=== PATIENT | male | born 1940 | race Caucasian/White ===

== ENCOUNTER 2016-12-19 07:07 | Emergency (ER) | payer OTHER ==
[~2016-12-19] VITALS: Ht 160 cm; Wt 65.1 kg
[2016-12-19 07:13] VITALS: Ht 160 cm; Wt 65.1 kg
[2016-12-19] MEDS ORDERED: KETOROLAC 30 MG INJ IM STA (07:37)
[2016-12-19] MEDS ORDERED: OXYC-279 PO (07:40)
[2016-12-19] MEDS ORDERED: IBUP-1542 PO (07:40)
[2016-12-19 07:53] LABS: URINE BLOOD (Dip) POC Trace-lysed (NEGATIVE)
--- NOTE | 2017-02-16 13:19 | ERD ---
ER Documentation Chief Complaint Date/Time DATE: 12/19/2016 TIME: 13:16 Chief Complaint has inguinal hernia, has pain x 1 mos HPI 77-year-old man complains of right inguinal hernia pain for over one month. He states he was previously diagnosed with an inguinal hernia and has not yet followed up with the surgeon. Pain is worse with ambulation, he states the pain is intermittent denies constant pain, no dysuria hematuria, no fevers or chills, no recent trauma, no chest pain or shortness of breath. Patient denies recent vomiting or weight loss. ROS All systems reviewed and are negative except as per history of present illness. Medications Home Meds Active Scripts Oxycodone HCl/Acetaminophen (Percocet 5-325 mg Tablet) 1 Each Tablet, 1 EACH PO TID for PAIN, #12 TAB Prov:ESTRELLA BORJAS MD 12/19/16 Ibuprofen* (Motrin*) 600 Mg Tab, 600 MG PO Q8 for PAIN AND/OR INFLAMMATION, #30 TAB Prov:ESTRELLA BORJAS MD 12/19/16 Allergies Allergies: Coded Allergies: No Known Allergy (Unverified , 12/19/16) PMhx/Soc Inguinal hernia Medical and Surgical Hx: pt denies Medical Hx, pt denies Surgical Hx History of Surgery: No Anesthesia Reaction: No Hx Neurological Disorder: No Hx Respiratory Disorders: No Hx Cardiac Disorders: No Hx Psychiatric Problems: No Hx Miscellaneous Medical Probl: No Hx Alcohol Use: No Hx Substance Use: No Hx Tobacco Use: No Smoking Status: Never smoker FmHx Family History: No diabetes Physical Exam Physical Exam GENERAL: Well-developed, well-nourished, well-hydrated, in no apparent distress , looks nontoxic in appearance HEENT: Moist mucous membranes, pink conjunctiva, no cervical spine tenderness or step-off deformities, no goiter, no jaundice or icterus, extraocular movements intact without pain. No submandibular induration, and no pharyngeal erythema NEURO: Alert and oriented 3, cranial nerves II through XII intact bilaterally, pupils equal round reactive to light, no focal deficits or facial asymmetry, sensation intact distally Strength 5/5 in upper and lower extremities bilaterally CARDIAC: Regular rate and rhythm, no murmurs rubs or gallops LUNGS: Clear bilaterally no wheezing crackles or stridor ABDOMEN: Soft nontender, reducible inguinal mass consistent with inguinal hernia. No psoas sign no obturator sign. Normoactive bowel sounds SKIN: Warm and dry to touch, no abrasions, contusions, or hematomas, no lacerations, no ecchymosis, no target lesions, and without ulcers EXTREMITIES: No clubbing cyanosis or edema, calves are bilaterally symmetrical, no Homans sign, no popliteal cord sign. Distal pulses equal and bilateral PSYCH: Normal affect without agitation or irritability Results 24 hrs Laboratory Tests Test 12/19/16 07:56 Bedside Urine pH (LAB) 6.5 Bedside Urine Protein (LAB) Negative Bedside Urine Glucose (UA) Negative Bedside Urine Ketones (LAB) Negative Bedside Urine Blood Trace-lysed Bedside Urine Nitrite (LAB) Negative Bedside Urine Leukocyte Esterase (L Negative Current Medications Medications (Trade) Dose Ordered Sig/Rafael Route PRN Reason Start Time Stop Time Status Last Admin Dose Admin Ketorolac Tromethamine (Toradol) 30 mg ONCE STAT IM 12/19/16 07:37 12/19/16 07:38 DC 12/19/16 07:55 Procedures/MDM I administered Toradol 30 mg intramuscular injection with good pain control. The patient to follow-up with his primary care physician and gave him the address and phone number to nearby surgeons that he can follow-up with for operative intervention. Differential diagnoses considered, included but not limited to acute coronary syndrome, pulmonary embolism, aortic dissection, abdominal aortic aneurysm, sepsis, stroke, meningitis, encephalitis, pneumonia, appendicitis, cholecystitis , bowel obstruction, pyelonephritis, nephrolithiasis, cystitis, as well as metabolic, hematologic, and electrolyte abnormalities. As well as abscess, cellulitis, fractures, and dislocations. Patient feels much better at this time, and vital signs are normal, symptoms have improved. I did give strict instructions to return to the ED if symptoms continue or worsen, patient will otherwise follow-up with primary care physician. Patient understood instructions and agreed to plan. Departure Diagnosis: Primary Impression: Hernia, abdominal Hernia type: femoral Obstruction and gangrene presence: without obstruction or gangrene Laterality: unilateral Recurrence: not specified as recurrent Qualified Code: K41.90 - Unilateral femoral hernia without obstruction or gangrene, recurrence not specified Condition: Good Patient Instructions: Hernia (Inguinal, Ventral, Umbilical) Referrals: MADELEINE NAVA M.D., DAVID MD February 16, 2017 13:19
== END 2016-12-19 07:58 | disposition home or self-care (01) ==
LOC: E/R 07:07
DX: K41.90 Unilateral femoral hernia, without obstruction or gangrene, not specified as recurrent (principal)
CPT/HCPCS: 81003; J1885; 96372